=== PATIENT | male | born 1950 | race Two or more races ===

== ENCOUNTER 2018-06-08 12:18 | Emergency (ER) | payer OTHER ==
[2018-06-08] MEDS ORDERED: Morphine VIAL* 10 MG/ML 1 ML VIAL IV ONE (12:37)
[2018-06-08] MEDS ORDERED: NS 0.9% 1000 ML* 1,000 ML IV ONE (12:37)
--- NOTE | 2018-06-08 12:44 | ED ---
Abdominal Pain/Male - HPI Summary HPI Summary: This patient is a 67 year old M BIBA to [facility] from [place] accompanied by two male guards with a chief complaint of a right sided inguinal hernia since 06/02/18. Today patient was given 5 325mg Percocet and 30mg of Toradol prior to attempting to put the hernia back in, but was unsuccessful. Pain is improved from earlier today and is currently a 5/10 in severity. Patient denies vomiting. PMHX of hypothyroidism, COPD, and Hepatitis C. - History of Current Complaint Chief Complaint: EDAbdPain Stated Complaint: PAIN Time Seen by Provider: 06/08/18 12:24 Hx Obtained From: Patient, EMS, Medical Records Onset/Duration: Lasting Weeks Timing: Constant Severity Initially: Severe Severity Currently: Moderate Pain Intensity: 5 Pain Scale Used: 0-10 Numeric Location: Other - right inguinal Alleviating Factor(s): Medications Associated Signs And Symptoms: Positive: Negative - Allergies/Home Medications Allergies/Adverse Reactions: Allergies Allergy/AdvReac Type Severity Reaction Status Date / Time No Known Allergies Allergy Verified 06/08/18 13:42 Home Medications: Home Medications Ipratropium HFA INHALER(NF) [Atrovent Hfa Inhaler(NF)] 2 puff INH QID 06/08/18 [ History Confirmed 06/08/18] Ketorolac INJ* [Toradol INJ*] 30 mg IM ONCE 06/08/18 [History Confirmed 06/08/18 ] Levothyroxine TAB* [Synthroid TAB*] 75 mcg PO DAILY 06/08/18 [History Confirmed 06/08/18] Tamsulosin CAP* [Flomax CAP*] 0.4 mg PO DAILY 06/08/18 [History Confirmed ] clonazePAM TAB(*) [KlonoPIN TAB(*)] 2 mg PO ONCE 06/08/18 [History Confirmed 09/13] oxyCODONE/Acetamin 5/325 MG* [Percocet 5/325 TAB*] 2 tab PO ONCE 06/08/18 [ History Confirmed 06/08/18] PMH/Surg Hx/FS Hx/Imm Hx Endocrine/Hematology History: Reports: Hx Thyroid Disease Respiratory History: Reports: Hx Chronic Obstructive Pulmonary Disease (COPD) - Cancer History Cancer Type, Location and Year: none - Immunization History Immunizations Up to Date: Yes Infectious Disease History: No Infectious Disease History: Reports: Hx Hepatitis - hep C Denies: Traveled Outside the [place] in Last 30 Days - Family History Known Family History: Positive: Hypertension - Social History Alcohol Use: None Substance Use Type: Reports: None Smoking Status (MU): Former Smoker Review of Systems Negative: Fever, Chills Negative: Erythema Negative: Sore Throat Negative: Chest Pain Negative: Shortness Of Breath, Cough Positive: Abdominal Pain - right inguinal hernia. Negative: Vomiting, Diarrhea , Nausea Negative: dysuria, hematuria Negative: Myalgia, Edema Negative: Rash Neurological: Negative - dizziness All Other Systems Reviewed And Are Negative: Yes Physical Exam - Summary Physical Exam Summary: Constitutional: Well-developed, Well-nourished, Alert. (-) Distressed Skin: Warm, Dry HENT: Normocephalic; Atraumatic Eyes: Conjunctiva normal Neck: Musculoskeletal ROM normal neck. (-) JVD, (-) Stridor, (-) Tracheal deviation Cardio: Rhythm regular, rate normal, Heart sounds normal; Intact distal pulses; The pedal pulses are 2+ and symmetric. Radial pulses are 2+ and symmetric. (-) Murmur Pulmonary/Chest wall: Effort normal. (-) Respiratory distress, (-) Wheezes, (-) Rales Abd: Soft, (-) epigastric tenderness, (-) Distension, (-) Guarding, (-) Rebound Palpable inguinal hernia superior to right inguinal crease with tenderness to palpation; no overlying skin discoloration Musculoskeletal: (-) Edema Lymph: (-) Cervical adenopathy Neuro: Alert, Oriented x3 Psych: Mood and affect Normal Triage Information Reviewed: Yes Vital Signs On Initial Exam: Initial Vitals Temp Pulse Resp BP Pulse Ox 97.5 F 59 16 134/72 96 06/08/18 12:21 06/08/18 12:21 06/08/18 12:21 06/08/18 12:21 06/08/18 12:21 Vital Signs Reviewed: Yes Procedures - Procedure Summary Procedure Summary: Right Inguinal Hernia Reduction: Fentanyl and ice pack used prior to attempted reduction. Unable to reduce hernia. at 1445. Diagnostics - Vital Signs Vital Signs Temp Pulse Resp BP Pulse Ox 06/08/18 12:21 97.5 F 59 16 134/72 96 - Laboratory Result Diagrams: 06/08/18 13:25 06/08/18 13:25 Lab Statement: Any lab studies that have been ordered have been reviewed, and results considered in the medical decision making process. Abdominal Pain Fem Course/Dx - Course Course Of Treatment: 67 year old M BIBA to [facility] from [place] accompanied by two male guards with a chief complaint of a right sided inguinal hernia since 06/02/18. Today patient was given 5 325mg Percocet and 30mg of Toradol prior to attempting to put the hernia back in, but was unsuccessful. Bloodwork was unremarkable. Patient is given IL IVF, Morphine, and Fentanyl. Fentanyl and Icepack given prior to reduction attempt, however hernia was unable to be reduced. Bloodowrk is unremarkable. Dr. Pulliam, Surgery, was consulted and he recommends an US. - Diagnoses Provider Diagnoses: Right groin mass Discharge - Sign-Out/Discharge Documenting (check all that apply): Patient Departure - Discharge Plan Condition: Good Disposition: HOME Referrals: Micheal [facility],Lamar Abad [Primary Care Provider] - - Billing Disposition and Condition Condition: GOOD Disposition: Home - Attestation Statements Document Initiated by Scribe: Yes Documenting Scribe: Dottie Siddiqui Provider For Whom Scribe is Documenting (Include Credential): Domo Sands MD Scribe Attestation: IDottie, scribed for Domo Sands MD on 06/08/18 at 2002. Scribe Documentation Reviewed: Yes Provider Attestation: The documentation as recorded by the Dottie saul accurately reflects the service I personally performed and the decisions made by me, Domo Sands MD
[2018-06-08] MEDS ORDERED: fentaNYL* 50 MCG/ML 2 ML VIAL (100 MCG VIAL) IV SLOW PU ONE (13:20)
[2018-06-08 13:33] LABS: ABS Basophils 0.1 10^3/ul (0-0.2); ABS Eosinophils 0.3 10^3/ul (0-0.6); ABS Lymphocytes 1.8 10^3/ul (1.0-4.8); ABS Monocytes 0.6 10^3/ul (0-0.8); ABS Neutrophils 2.5 10^3/ul (1.5-7.7); ABS Nucleated RBC 0 10^3/ul; Eosinophil % 6.1 % (0-6); Hematocrit 42 % (42-52); Hemoglobin 14.1 g/dl (14.0-18.0); Lymphocyte % 33.9 % (25-47); Mean Corpuscular HGB Conc 34 g/dl (31-36); Mean Corpuscular Hemoglobin 29 pg (27-31); Mean Corpuscular Volume 86 fL (80-94); Mean Platelet Volume 8.8 um3 (7.4-10.4); Nucleated Red Blood Cells % 0; Platelet Count 164 10^3/ul (150-450); Red Blood Count 4.88 10^6/ul (4.00-5.40); Red Cell Distribution Width 15 % (10.5-15); White Blood Count 5.4 10^3/ul (3.5-10.8)
[2018-06-08 13:56] LABS: EGFR Non-African American 99.9 (>60)
[2018-06-08 14:41] LABS: Urine Appearance Clear; Urine Blood Negative (Negative); Urine Color Yellow; Urine Ketones Negative (Negative); Urine Protein Negative (Negative); Urine Specific Gravity 1.008 (1.010-1.030); Urine Urobilinogen Negative (Negative)
--- NOTE | 2018-06-08 15:24 | RAD ---
HISTORY: R GROIN LUMP FOR SIX DAYS COMPARISONS: None TECHNIQUE: Multiple transverse and longitudinal ultrasound images were obtained of the scrotum, using grayscale, color Doppler, and spectral Doppler imaging. FINDINGS: RIGHT: RIGHT TESTICLE: The right testicle measures 4.6 x 2.1 x 3.2 cm. The right testicle is homogeneous in echotexture, without testicular parenchymal mass. Normal arterial and venous waveforms are identified within the right testicle on spectral Doppler imaging. RIGHT EPIDIDYMIS: The right epididymis measures 1.1 cm at the head. There is a 0.3 cm cyst of the epididymal head. RIGHT SCROTUM: There is a small right hydrocele with debris. There is no varicocele. LEFT: LEFT TESTICLE: The left testicle measures 4.2 x 2.2 x 3.2 cm. The left testicle is homogeneous in echotexture, without testicular parenchymal mass. Normal arterial and venous waveforms are identified within the left testicle on spectral Doppler imaging. LEFT EPIDIDYMIS: The left epididymis measures 1.3 cm at the head. LEFT SCROTUM: There is a small right hydrocele. There is no varicocele. OTHER: None IMPRESSION: 1. NO TESTICULAR PARENCHYMAL MASS. 2. NO SONOGRAPHIC FEATURES OF TORSION. PLEASE NOTE THAT PARTIAL OR INTERMITTENT TORSION MAY BE SONOGRAPHICALLY NORMAL. 3. SMALL BILATERAL HYDROCELES.
--- NOTE | 2018-06-08 16:58 | ED ---
Progress - Progress Note Progress Note: This is scribe Vee Xiong taking over Dottie Siddiqui's chart for Dr. Domo Sands mid-shift on 06.08.18. The pt's testicular ultrasound came back, results in the results area of the chart. 193 - The pt's soft tissue US came back, results in the other section of chart. - Results/Orders Results/Orders: Testicular US - 1. NO TESTICULAR PARENCHYMAL MASS. 2. NO SONOGRAPHIC FEATURES OF TORSION. PLEASE NOTE THAT PARTIAL OR INTERMITTENT TORSION MAY BE SONOGRAPHICALLY NORMAL. 3. SMALL BILATERAL HYDROCELES. Soft Tissue US - Heterogeneous partially cystic 5.0 x 3.2 x 4.6 cm mass noted in the area of palpable concern in right groin. No peristalsis identified to indicate herniated bowel. Course/Dx - Course Course Of Treatment: The pt got his soft tissue ultrasound back, and the dx does not appear to be bowel-related upon US examination. The pt will be d/c'ed with a dx of R groin mass. plan: This patient will require primary care followup, possible additional nonemergent imaging for characterization of mass, possible biopsy. Node vs mass - Diagnoses Provider Diagnoses: Right groin mass Discharge - Sign-Out/Discharge Documenting (check all that apply): Patient Departure - Discharge Plan Condition: Good Disposition: HOME Referrals: Micheal RUIZ,Lamar Abad [Primary Care Provider] - 2 Days (for additional imaging and/or biopsy) - Billing Disposition and Condition Condition: GOOD Disposition: Home - Attestation Statements Document Initiated by Scribe: Yes Documenting Scribe: Vee Xiong Provider For Whom Joshua is Documenting (Include Credential): Domo Sands MD. Scribe Attestation: Vee Villa, scribed for Domo Sands MD. on 06/08/18 at 2004. Scribe Documentation Reviewed: Yes Provider Attestation: The documentation as recorded by the dukeibVee rosa accurately reflects the service I personally performed and the decisions made by me, Domo Sands MD.
--- NOTE | 2018-06-08 19:09 | RAD ---
EXAM: US Right Lower Extremity Non-Vascular, Limited CLINICAL HISTORY: 67 years old, male; Signs and symptoms; Mass or lump; Upper leg; Right; Additional info: R inguinal lump TECHNIQUE: Real-time ultrasound scan of the right lower extremity with image documentation. COMPARISON: No relevant prior studies available. FINDINGS: A round heterogeneous structure is present in the area of palpable concern in the right groin measuring 5.0 x 3.2 x 4.6 cm. This structure lies medial to the iliac artery and vein and appears partially cystic centrally. The compression molding machine tender reports no peristalsis identified. Several normal appearing inguinal lymph nodes are also incidentally noted. IMPRESSION: Heterogeneous partially cystic 5.0 x 3.2 x 4.6 cm mass noted in the area of palpable concern in right groin. No peristalsis identified to indicate herniated bowel.
[2018-06-08 20:40] VITALS: BP 136/84
== END 2018-06-08 20:39 | disposition home or self-care (01) ==
LOC: ED 12:18
DX: R19.03 Right lower quadrant abdominal swelling, mass and lump (principal); N43.3 Hydrocele, unspecified; E07.9 Disorder of thyroid, unspecified; Z87.891 Personal history of nicotine dependence
CPT/HCPCS: 36415; 76870; 80053; 81003; 83605; 83690; 85025; 86140; 96374; 99282; J3010

== ENCOUNTER 2018-09-23 11:00 | Emergency (ER) | payer OTHER ==
[2018-09-23] MEDS ORDERED: traMADol TAB* 50 MG PO ONE (11:48)
[2018-09-23 12:08] LABS: Hematocrit 40 % (42-52); Hemoglobin 13.5 g/dl (14.0-18.0); Mean Corpuscular HGB Conc 34 g/dl (31-36); Mean Corpuscular Hemoglobin 30 pg (27-31); Mean Corpuscular Volume 88 fL (80-94); Mean Platelet Volume 8.9 fL (7.4-10.4); Platelet Count 153 10^3/ul (150-450); Red Blood Count 4.54 10^6/ul (4.00-5.40); Red Cell Distribution Width 14 % (10.5-15); White Blood Count 6.8 10^3/ul (3.5-10.8)
--- NOTE | 2018-09-23 12:23 | ED ---
GI/ HPI - HPI Summary HPI Summary: A 67 y/o male accompanied by police presents to the ED c/o testicular and penile swelling. Currently, the patient is experiencing pain in his penis and testicular region reaching 8/10 in severity. As per triage, "Pt c/o right groin , testicle and penile swelling after hernia repair on 09/08. Pt had the surgery at [facility] but doesn't remember the surgeon. Pt had mesh placed and incision was glued". According to the patient, he had surgery two weeks ago on 09/08/2018. Because of that surgery, he has been having a lot of problems like swelling. He stated that his testicules were getting swollen which he knew was normal, but it is getting worse. He stated that now, his penis is starting to swelling since yesterday. He also noted that there is a lot of pain associated with the pain. Additionally, he has lots of pain around the incision. He characterized the pain as sharp and pinching. He denies any burning with urination and no issues with bowels. He insisted that he is not feeling right and something is happening to him. For pain, he has taken Aspirin and Ibuprofen. - History of Current Complaint Chief Complaint: EDUrogenitalProblems Time Seen by Provider: 09/23/18 11:31 Stated Complaint: GROIN PAINS Hx Obtained From: Patient Onset/Duration: Started Days Ago, Still Present Timing: Constant Severity: Severe Current Severity: Severe Pain Intensity: 8 Location of Pain: Other - TESTICULAR AND PENILE AREA Additional Locations for Males: Penis, Scrotum, Testicles Pain Characteristics: Sharp Associated Signs and Symptoms: Positive: Negative Additional Signs & Symptoms: Positive: Penile Swelling Aggravating Factor(s): Nothing Alleviating Factor(s): Nothing - Allergy/Home Medications Allergies/Adverse Reactions: Allergies Allergy/AdvReac Type Severity Reaction Status Date / Time No Known Allergies Allergy Verified 09/23/18 11:10 PMH/Surg Hx/FS Hx/Imm Hx Endocrine/Hematology History: Reports: Hx Thyroid Disease Respiratory History: Reports: Hx Chronic Obstructive Pulmonary Disease (COPD) - Cancer History Cancer Type, Location and Year: none - Surgical History Surgery Procedure, Year, and Place: EXPLORATORY SURGERY PER PATIENT. - Immunization History Date of Tetanus Vaccine: UTD Date of Influenza Vaccine: UTD Infectious Disease History: No Infectious Disease History: Reports: Hx Hepatitis - hep C Denies: Traveled Outside the [place] in Last 30 Days - Family History Known Family History: Positive: Hypertension - Social History Alcohol Use: None Substance Use Type: Reports: None Smoking Status (MU): Light Every Day Tobacco Smoker Review of Systems Negative: Fever, Chills Negative: Erythema Negative: Sore Throat Negative: Chest Pain Negative: Shortness Of Breath, Cough Negative: Abdominal Pain, Vomiting, Nausea Negative: dysuria, hematuria Positive: Edema - TESTICULAR AND PENILE REGION WITH PAIN. Negative: Myalgia Negative: Rash Neurological: Other - NEGATIVE: DIZZINESS All Other Systems Reviewed And Are Negative: Yes Physical Exam - Summary Physical Exam Summary: Constitutional: Well-developed, Well-nourished, Alert. (-) Distressed Skin: Warm, Dry HENT: Normocephalic; Atraumatic Eyes: Conjunctiva normal Neck: Musculoskeletal ROM normal neck. (-) JVD, (-) Stridor, (-) Tracheal deviation Cardio: Rhythm regular, rate normal, Heart sounds normal; Intact distal pulses; The pedal pulses are 2+ and symmetric. Radial pulses are 2+ and symmetric. (-) Murmur Pulmonary/Chest wall: Effort normal. (-) Respiratory distress, (-) Wheezes, (-) Rales Abd: Soft, (-) epigastric tenderness, (-) Distension, (-) Guarding, (-) Rebound Musculoskeletal: Significant edema to the scrotum and penis. Scrotum swelling is primarily on right side. Inguinal swelling around incision. No warmth or erythema. Lymph: (-) Cervical adenopathy Neuro: Alert, Oriented x3 Psych: Mood and affect Normal Triage Information Reviewed: Yes Vital Signs On Initial Exam: Initial Vitals Temp Pulse Resp BP Pulse Ox 98.2 F 73 20 148/56 97 09/23/18 11:05 09/23/18 11:05 09/23/18 11:05 09/23/18 11:05 09/23/18 11:05 Vital Signs Reviewed: Yes Diagnostics - Vital Signs Vital Signs Temp Pulse Resp BP Pulse Ox 09/23/18 11:05 98.2 F 73 20 148/56 97 - Laboratory Lab Results: Lab Results 09/23/18 Range/Units 11:56 WBC 6.8 (3.5-10.8) 10^3/ul RBC 4.54 (4.00-5.40) 10^6/ul Hgb 13.5 L (14.0-18.0) g/dl Hct 40 L (42-52) % MCV 88 (80-94) fL MCH 30 (27-31) pg MCHC 34 (31-36) g/dl RDW 14 (10.5-15) % Plt Count 153 (150-450) 10^3/ul MPV 8.9 (7.4-10.4) fL Result Diagrams: 09/23/18 11:56 09/23/18 11:56 Lab Statement: Any lab studies that have been ordered have been reviewed, and results considered in the medical decision making process. GIGU Course/Dx - Course Course Of Treatment: A 67 y/o male accompanied by police presents to the ED c/o testicular and penile swelling. Currently, the patient is experiencing pain in his penis and testicular region reaching 8/10 in severity. According to the patient, he had surgery two weeks ago on 09/08/2018. Because of that surgery, he has been having a lot of problems like swelling. He stated that his testicules were getting swollen which he knew was normal, but it is getting worse. He stated that now, his penis is starting to swelling since yesterday. He also noted that there is a lot of pain associated with the pain. Additionally , he has lots of pain around the incision. He characterized the pain as sharp and pinching. He denies any burning with urination and no issues with bowels. He insisted that he is not feeling right and something is happening to him. For pain, he has taken Aspirin and Ibuprofen. Physical examination findings significant for significant edema to the scrotum and penis. Scrotum swelling is primarily on right side. Inguinal swelling around incision. No warmth or erythema. No laboratory scans were done. Hematology screen was done No significant laboratory abnormalities were found. In the ED course, the patient received Ultram. Patient care was discussed with general surgeon, Dr. Ocampo, who recommends patient be transferred to [facility]. Patient care was also discussed with accepting physician, Dr. Mahoney, who accepts patient for admission to [facility]. Patient will be transferred to [facility] with a diagnosis of postoperative swelling/complication. Patient is agreeable with this. Assessment/Plan: PATIENT COULD HAVE POST-OPERATIVE SWELLING, HOWEVER, IT IS AGREESIVE. THIS IS CONCERNING AND DO WONDER POSSIBLE HERNIA REOCCURANCE OR POSSIBLE MESH FAILURE. FOLLOW UP APPOINTMENT IS IN A MONTH BUT NEEDS TO BE SEEN ON A URGENT BASIS. HE SHOULD BE SEEN TODAY BY OPERATIVE TEAM AT [facility]. PATIENT WILL BE TRANSFERRED TO [facility] FOR CONTINUOUS AND SURGICAL CARE. - Diagnoses Provider Diagnoses: Post-operative complication - Physician Notifications Discussed Care Of Patient With: Dr. Ocampo Time Discussed With Above Provider: 11:49 Instructed by Provider To: Other - General surgeon at [facility]. Recommends patient be transferred to [facility]. 1212 - Dr. Mahoney at [facility] is the accepting physician. Discharge - Sign-Out/Discharge Documenting (check all that apply): Patient Departure - TRANSFER - Discharge Plan Condition: Stable Disposition: TRANS HIGHER LVL OF CARE FAC Referrals: Micheal RUIZ,Lamar Abad [Primary Care Provider] - - Attestation Statements Document Initiated by Scribe: Yes Documenting Scribe: Emmett Johnson Provider For Whom Scribe is Documenting (Include Credential): Domo Sands MD Scribe Attestation: Emmett Villa, scribed for Domo Sands MD on 09/23/18 at 1241. Status of Scribe Document: Ready
[2018-09-23 12:33] LABS: Albumin 3.8 g/dL (3.2-5.2); Albumin/Globulin Ratio 1.8 (1-3); BUN/Creatinine Ratio 24.7 (8-20); C Reactive Protein 7.06 mg/L (<8.01); Calcium 9.3 mg/dL (8.6-10.3); EGFR Non-African American 107.8 (>60); Globulin 2.1 g/dL (2-4); Total Bilirubin 0.3 mg/dL (0.2-1.0); Total Protein 5.9 g/dL (6.4-8.9)
[2018-09-23 12:38] LABS: Potassium 5.1 mmol/L (3.5-5.0)
[2018-09-23 13:35] VITALS: BP 141/76
== END 2018-09-23 13:34 | disposition short-term general hospital (02) ==
LOC: ED 11:00
DX: T81.9XXA Unspecified complication of procedure, initial encounter (principal); R60.0 Localized edema; F17.210 Nicotine dependence, cigarettes, uncomplicated; Z98.890 Other specified postprocedural states
CPT/HCPCS: 36415; 80053; 83605; 85027; 86140; 99283; A9270-GY